=== PATIENT | male | born 1940 | race Caucasian/White ===

== ENCOUNTER 2025-04-20 19:58 | Emergency (ER) | payer MEDICARE, MEDICAID ==
[~2025-04-20] VITALS: Ht 190.5 cm; Wt 99.0 kg
[2025-04-20 20:22] LABS: BASOPHILS % (AUTO) 0.1 % (0-1); EOSINOPHILS % (AUTO) 0 % (0-6); HEMATOCRIT 37.9 % (42.0-52.0); HEMOGLOBIN 12.8 g/dl (14.0-17.9); LYMPHOCYTES # (AUTO) 0.6 X10'3 (1.1-4.8); LYMPHOCYTES % (AUTO) 8.5 % (21-51); MEAN CORPUSCULAR HEMOGLOBIN 32.2 PG (27.0-31.0); MEAN CORPUSCULAR HGB CONC 33.8 g/dL (33.0-36.5); MEAN CORPUSCULAR VOLUME 95.3 FL (78-98); MONOCYTES # (AUTO) 0.5 X10'3 (0-0.9); MONOCYTES % (AUTO) 6.3 % (2-12); NEUTROPHILS # (AUTO) 6.1 X10'3 (1.8-7.7); NEUTROPHILS % (AUTO) 85.1 % (42-75); PLATELET COUNT 210 X10'3 (140-440); RED BLOOD COUNT 3.98 X10'6 (4.70-6.10); RED CELL DISTRIBUTION WIDTH 13.4 % (11.5-14.5); WHITE BLOOD COUNT 7.2 X10'3 (4.5-11.0)
--- NOTE | 2025-04-20 20:38 | RADIOLOGY REPORT ---
CHEST RADIOGRAPH Indication: CP Technique: Single frontal view of the chest was obtained Comparison: None FINDINGS: Lines and Tubes: None Lungs: No focal consolidation. Pleura: No effusion. No pneumothorax. Cardiomediastinal contours: Unremarkable Bones: No acute osseous abnormality. IMPRESSION: No acute cardiopulmonary disease.
[2025-04-20 20:41] LABS: ALBUMIN 3.7 G/DL (3.4-5.0); ANION GAP 11 (8-16); BLOOD UREA NITROGEN 22 MG/DL (7-18); BUN/CREATININE RATIO 19.1 (10.0-20.0); CALCIUM 8.6 MG/DL (8.5-10.1); CHLORIDE 100 MMOL/L (99-107); CREATININE 1.15 MG/DL (0.60-1.10); GLUCOSE 172 MG/DL (70-104); POTASSIUM 4.8 MMOL/L (3.5-5.1); PRO BRAIN NATRIURETIC PEPTIDE 245 PG/ML (0-450); SODIUM 136 MMOL/L (135-145); TOTAL CARBON DIOXIDE 24.6 MMOL/L (24-32); eCRCL 59 ML/MIN; eGFR 61 ML/MIN
[2025-04-20 21:03] VITALS: TEMP 98
--- NOTE | 2025-04-20 23:38 | Physician Documentation ---
History of Present Illness ~ Chief Complaint: Shortness of Breath Stated Complaint: SOB Time Seen by MD: 23:28 Mode of Arrival: POV, Ambulatory HPI Patient presents to the emergency room for evaluation of shortness of breath. He states he was seen yesterday for similar complaints and was told that he had a virus and was put on some prednisone. He states he is feeling better now. He does endorse history of anxiety. He states he is all he has been anxious sometimes he will work himself up and he does believe that that has an element of anxiety with his shortness of breath. Denies chest pain. No fevers Medication Reconciliation Allergies: Coded Allergies: No Known Allergies (Unverified , 04/20/25) Review of Systems ROS All review of systems negative except as per HPI Physical Exam Vital Signs: Temperature: 98.0, Source: Oral, Heart Rate: 70, Respiratory Rate: 16, BP: 143/80, Pulse Oximetry: 96, Weight: 99.000 Oxygen Flow Rate: 0 Physical Exam General: Patient is awake, alert, oriented x4 in no acute distress Head: Normocephalic and atraumatic. Eyes: Conjunctival normal. EOMI. PERRL. ENT: Mucous membranes moist. Neck: Supple, trachea is midline. Chest: Clear to auscultation bilaterally without rales, rhonchi, or wheezes. T here is no accessory muscle use or retractions. Cardiac: RRR without murmurs, gallops, or rubs. Extremities: Normal strength. Normal range of motion. No deformities or edema. No calf tenderness to palpation Progress Results/Orders Results/Orders Orders - PREM MCMAHON MD Chest,Single View (04/20/25 20:20) Monitor (04/20/25 20:07) Saline Lock (04/20/25 20:07) Oxygen (04/20/25 20:07) Electrocardiogram (04/20/25 20:07) Completed Orders - PREM MCMAHON MD Chest,Single View (04/20/25 20:20) Cbc/Diff (04/20/25 20:07) BMP (04/20/25 20:07) PBNP (04/20/25 20:07) Hs Troponin I W Calculations (04/20/25 20:07) Hs Troponin I W Calculations (04/20/25 22:07) Vital Signs 04/20/25 04/20/25 04/20/25 04/20/25 20:12 21:03 21:03 22:14 Temp 98.0 98.0 Pulse 98 77 70 Resp 15 16 12 16 B/P (MAP) 152/81 130/71 (90) 143/80 (101) Pulse Ox 96 95 96 O2 Flow Rate 0 0 0 Laboratory Tests Test 04/20/25 20:15 04/20/25 22:07 White Blood Count 7.2 Red Blood Count 3.98 L Hemoglobin 12.8 L Hematocrit 37.9 L Mean Corpuscular Volume 95.3 Mean Corpuscular Hemoglobin 32.2 H Mean Corpuscular Hemoglobin Concent 33.8 Red Cell Distribution Width 13.4 Platelet Count 210 Mean Platelet Volume 7.0 L Neutrophils (%) (Auto) 85.1 H Lymphocytes (%) (Auto) 8.5 L Monocytes (%) (Auto) 6.3 Eosinophils (%) (Auto) 0 Basophils (%) (Auto) 0.1 Neutrophils # (Auto) 6.1 Lymphocytes # (Auto) 0.6 L Monocytes # (Auto) 0.5 Eosinophils # (Auto) 0.0 Basophils # (Auto) 0.0 CBC Comment Sodium Level 136 Potassium Level 4.8 Chloride Level 100 Carbon Dioxide Level 24.6 Anion Gap 11 Blood Urea Nitrogen 22 H Creatinine 1.15 H Estimated GFR/1.73 m2 61 BUN/Creatinine Ratio 19.1 Glucose Level 172 H Calcium Level 8.6 Troponin I High Sensitivity 6 4 Pro-B-Type Natriuretic Peptide 245 Albumin 3.7 Chemistry Comments Troponin I High Sens Percent Delta 33 Troponin I Hi Sens Absolute Change -2 EKG/XRAY/CT/US/VASC/MRI EKG : Additional Comment EKG interpreted by myself shows time of 1954, rate 89, sinus rhythm, borderline left axis deviation, no ST changes Chest X-Ray : Additional Comments Exam: CHEST,SINGLE VIEW CHEST RADIOGRAPH Indication: CP Technique: Single frontal view of the chest was obtained Comparison: None FINDINGS: Lines and Tubes: None Lungs: No focal consolidation. Pleura: No effusion. No pneumothorax. Cardiomediastinal contours: Unremarkable Bones: No acute osseous abnormality. IMPRESSION: No acute cardiopulmonary disease. Medical Decision Making Findings Patient presented to the emergency room with chief complaint of shortness of breath. Differentials include but are not limited to pneumonia, viral syndrome, anxiety, CHF therefore emergent labs and imaging indicated. Labs and imaging are reassuring for negative troponins and he had Bnp. Patient is at his baseline currently with no treatment I do believe this is related to his anxiety. He is requesting additional prednisone as he is almost out of his previous course. I will give him initial two days of prednisone. Departure Disposition: HOME / SELF CARE / HOMELESS Impression: Primary Impression: Difficulty breathing Condition: Improved Discharge Instructions: Viral Syndrome Referrals: NO PRIMARY CARE PROVIDER (PCP) Signature Scribe Signature: No scribe Attestation: The note accurately reflects work and decisions made by me.Prem Mcmahon MD 04/20/25 23:38 PREM MCMAHON MD Apr 20, 2025 23:38
[2025-04-20 23:39] VITALS: BP 146/92; PULSE 73; RESP 16; O2SAT 98
[2025-04-20] MEDS ORDERED: PRED20TA PO (23:49)
== END 2025-04-21 00:02 | disposition home or self-care (01) ==
LOC: ER 19:59
DX: R06.02 Shortness of breath (principal); F41.9 Anxiety disorder, unspecified
CPT/HCPCS: 36415; 71045; 80048; 83880; 84484; 85025; 99284